=== PATIENT | female | born 2000 | race Caucasian/White ===

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

== ENCOUNTER 2021-06-23 05:47 | Outpatient (CLI) | payer BC, MEDICAID ==
[~2021-06-23] VITALS: Ht 167.7 cm; Wt 61.7 kg
[2021-06-23] MEDS ORDERED: NORE0.3520 PO (09:13)
[2021-06-23] MEDS ORDERED: ELAG150T PO (09:13)
[2021-06-23] MEDS ORDERED: RT-ALBUINH IH (09:13)
[2021-06-23] MEDS ORDERED: CETI10TA49 PO (09:44)
[2021-06-24] MEDS ORDERED: ACET-93 PO (11:17)
[2021-06-24] MEDS ORDERED: OXC5T PO (11:17)
[2021-06-24] MEDS ORDERED: IBUP-844 PO (11:17)
[2021-06-24] MEDS ORDERED: ELAG150T PO (11:17)
== END 2021-06-23 10:11 | disposition home or self-care (01) ==
LOC: PREOP 05:47
PROVIDERS: ATTEND Obstetrics & Gynecology
DX: Z01.818 Encounter for other preprocedural examination (principal)

== ENCOUNTER 2021-06-24 08:42 | Day surgery (SDC) | payer BC, MEDICAID ==
[~2021-06-24] VITALS: Ht 167 cm; Wt 61.7 kg
[2021-06-24] VITALS (10 sets, daily range): BP systolic 107–131; BP diastolic 55–91
--- NOTE | 2021-06-24 07:50 | History & Physical-Surgical ---
HPO-Surgical History of Present Illness Chief Complaint: chronic pelvic pain, not completely resolved with conservative measures Diagnosis/Surgical Indication: CHRONIC PELVIC PAIN/ENDOMETRIOSIS Procedure: LAPAROSCOPY, RESECTION OF ENDOMETRIOSIS, OTHER INDICATED PROCEDURES Date of Surgery: Jun 24, 2021 Weight (Pounds): 137 Weight (Ounces): 1.0 Height (Feet): 5 Height (Inches): 6.00 Allergies and Home Medications Allergies Coded Allergies: cefuroxime axetil (Unverified Adverse Reaction, Unknown, NAUSEA, CAN TAKE KEFLEX, 05/26/18) Patient Home Medication List Home Medication List Reviewed: Yes Albuterol Sulfate (Proair Hfa) 1 Puff Puff, 2 PUFF IH Q4H PRN for SHORTNESS OF BREATH, (Reported) Entered as Reported by: YANNI PITT on 06/23/21912 Cetirizine HCl (Zyrtec) 10 Mg Tablet, 10 MG PO DAILY PRN, (Reported) Entered as Reported by: YANNI PITT on 06/23/21943 Norethindrone (Norethindrone) 0.35 Mg Tablet, 0.35 MG PO DAILY, (Reported) Entered as Reported by: YANNI PITT on 06/23/21912 Discontinued Medications Elagolix Sodium (Orilissa) 150 Mg Tablet, 150 MG PO DAILY, (Reported) Discontinued Reason: No Longer Taking Entered as Reported by: YANNI PITT on 06/23/21912 Hydrocodone Bit/Acetaminophen (Lortab 5 Mg Tablet) 1 Tab Tab, 1 TAB PO Q4-6HR PRN for PAIN-MODERATE Discontinued Reason: No Longer Taking Prescribed by: ALEXANDRIA HUMPHRIES on 10/27/182026 Norgestrel-Ethinyl Estradiol (Elinest-28 Tablet) 1 Each Tablet, 1 TAB PO DAILY, (Reported) Discontinued Reason: No Longer Taking Entered as Reported by: RAUL STEVENSON on 10/27/18 153 Past Cdxhrxd-Uexmmv-Ysfwqw Hx Patient Social History Marrital Status: single Number of Children: 0 Number of living children: 0 Employed/Student: employed Smoking Status: Never a Smoker 2nd Hand Smoke Exposure: No Recent Hopitalizations: No Immunizations Up To Date Date of Influenza Vaccine: Aug 30, 2018 Seasonal Allergies Seasonal Allergies: Yes Surgeries Yes (LYMPH NODE REMOVAL, DENTAL SX) Adenoidectomy, Tonsillectomy Respiratory Yes Cardiovascular No Neurological Yes (AMPLIFIED PAIN SYNDROME) Reproductive System Hx Reproductive Disorders: No Female Reproductive Disorders: Endometriosis Genitourinary No Gastrointestinal No Musculoskeletal No Scoliosis Endocrine History of Endocrine Disorders: No HEENT History of HEENT Disorders: No Cancer No Psychosocial History of Psychiatric Problem: Yes Behavioral Health Disorders: Anxiety Integumentary History of Skin or Integumenta: Yes (ACNE) Blood Transfusions History of Blood Disorders: No Family Medical History Family Hx: Diabetes mellitus PATERAL GRANDFATHER Mental disorder in maternal grandmother Exam Vital Signs Capillary Refill : General Appearance: Alert Respiratory: Clear to Auscultation Cardiovascular: Regular Rate Abdominal: Other (pelvic exam with posterior pain, some decreased mobilit of the uterus) Assessment/Plan Assessment and Plan 1. chronic pelvic pain, not resolved with conservative treatment 2. endometriosis plan - laparoscopy with resection of endometriosis, lysis of adhesion, possible appendectomy, other indicated procedures. Risks of surgery including but not limited to bleeding, injury to bowel, bladder and ureter explained to patient. Understands that if this not the only cause for pain, that pain may not be completely resolved. Prophylactic antibiotics are not recommended. Will be NPO after midnight. Will use prophylactic SCDs. appropriate consents have been signed. JUDIE RUEDA DO Jun 24, 2021 07:50
[~2021-06-24 08:42] MED LIST changes: +CETI10TA49 PO; +ELAG150T PO; +NORE0.3520 PO; +RT-ALBUINH IH
[2021-06-24] MEDS: LACTATED RINGERS 1,000 ML IV PRN ×2 (09:14→10:52)
[2021-06-24] MEDS ORDERED: BUPIVACAINE 0.25% 30 ML (SENSORCAINE) VIAL ONE (09:23)
[2021-06-24] MEDS ORDERED: fentaNYL INJ 100 MCG/2 ML AMP ONE (09:56)
[2021-06-24] MEDS ORDERED: MIDAZOLAM 2 MG/2 ML (VERSED) VIAL ONE (09:56)
[2021-06-24] MEDS ORDERED: NEOSTIGMINE 3 MG/3 ML VIAL ONE (11:04)
[2021-06-24] MEDS ORDERED: ROCURONIUM 10 MG/ML 5 ML SYRINGE IV ONE (11:04)
[2021-06-24] MEDS ORDERED: GLYCOPYRROLATE 0.2 MG/ML (ROBINUL) 2 ML VIAL ONE (11:04)
[2021-06-24] MEDS ORDERED: proPOfol 200 MG/20 ML (DIPRIVAN) VIAL IV ONE (11:05)
[2021-06-24] MEDS ORDERED: SEVOFLURANE (ULTANE) 15 ML INHAL SOLN ONE (11:05)
[2021-06-24] MEDS ORDERED: ONDANSETRON 4 MG/2 ML (SDV) Z0FRAN ONE (11:05)
--- NOTE | 2021-06-24 11:14 | Operative Report ---
Operative Report Date of Procedure/Surgery Jun 24, 2021 Surgeon (s) JUDIE RUEDA DO Cut In Worker (s): NA Post-Operative Diagnosis stage 1 endometriosis enteropelvic adhesion from appendectomy Procedure Performed Laparoscopy with resection and fulgeration of endometriosis lysis of enteropelvic adhesion Description of Procedure Anesthesia Type: General Estimated blood loss (mL): minimal Specimen(s) collected/removed endometriosis right pelvis Description of the Procedure With informed consent the patient was taken to the operating room where general anesthetic was found to be adequate. She was then prepped and draped in the usual sterile fashion in the dorsal lithotomy position. The bladder was drained with a straight catheter of clear yellow urine. A speculum was placed in the vagina and the cervix was grasped with a tenaculum and then a uterine manipulator was inserted. Attention was now turned to the abdomen. The umbilicus was injected with 0.25% Marcaine with epinephrine. A 5 mm skin incision was then made. The varies needle was then inserted and intra-abdominal placement was confirmed with saline drop test and a drop in pressure. The abdomen was insufflated to a maximum pressure of 5 mmHg. The 5 mm trocar was now inserted under direct visualization with the Optiview. Patient was now placed into Trendelenburg and the above-mentioned findings were found. 2 additional 5 mm trochars were placed in the left lower quadrant and lateral to the rectus muscles. I then proceeded to do an evaluation of the pelvis. There was endometriosis in the right side of the cul-de-sac. This was elevated off of the peritoneum and excised. The biopsy was then sent for pathology There are tubes and ovaries appeared normal the uterus otherwise appeared normal. At this point I then took down the adhesions that were associated with her appendix. She had adhesions in the right pelvis extending up the right abdominal wall. This did include a loop of bowel. The bowel was not adherent to the abdominal wall but it was kinked with a band of adhesion. The adhesions were taken down near the abdominal peritoneum in a blunt and in sharp fashion. It was then examined to reveal no active bleeding. The pelvis was now irrigated and there was no active bleeding noted I then removed the instruments and as much gas as possible from the abdomen. The skin was closed with Dermabond. The instruments were now removed from the vagina. The patient was now awakened and taken to the recovery room in a stable condition. Sponge lap needle and instrument counts were correct x2. Findings of the Procedure fluid in pelvis (serosanguinous) stage 1 endometriosis on ovaries and in culdesac dense adhesion of bowel to right pelvic side wall Allergies and Home Medications Allergies Coded Allergies: cefuroxime axetil (Verified Adverse Reaction, Unknown, NAUSEA, CAN TAKE KEFLEX, 06/24/21) Patient Home Medication List Home Medication List Reviewed: Yes Acetaminophen (Acetaminophen) 500 Mg Tablet, 1,000 MG PO Q8H PRN for PAIN-MILD (1-4) Prescribed by: JUDIE RUEDA on 06/24/211116 Albuterol Sulfate (Proair Hfa) 1 Puff Puff, 2 PUFF IH Q4H PRN for SHORTNESS OF BREATH, (Reported) Entered as Reported by: YANNI PITT on 06/23/21912 Last Action: Reviewed Cetirizine HCl (Zyrtec) 10 Mg Tablet, 10 MG PO DAILY PRN, (Reported) Entered as Reported by: YANNI PITT on 06/23/21943 Last Action: Reviewed Elagolix Sodium (Orilissa) 150 Mg Tablet, 150 MG PO DAILY Prescribed by: JUDIE RUEDA on 06/24/211116 Ibuprofen (Ibu) 600 Mg Tablet, 600 MG PO Q6HR Prescribed by: JUDIE RUEDA on 06/24/211116 Norethindrone (Norethindrone) 0.35 Mg Tablet, 0.35 MG PO DAILY, (Reported) Entered as Reported by: YANNI PITT on 06/23/21912 Last Action: Reviewed Oxycodone Hcl (Oxyir Tablet) 5 Mg Tab, 5-10 MG PO Q4H PRN for PAIN-SEVERE (8-10) Prescribed by: JUDIE RUEDA on 06/24/211117 JUDIE RUEDA DO Jun 24, 2021 11:14
[2021-06-24] MEDS ORDERED: ACETAMINOPHEN 500 MG TAB (TYLENOL) PO PRN (11:15)
[2021-06-24] MEDS ORDERED: D5 LR IV SOLUTION 1,000 ML IV SCH (11:15)
[2021-06-24] MEDS ORDERED: KETOROLAC 30 MG/ML VIAL IVP ONE (11:15)
[2021-06-24] MEDS ORDERED: ONDANSETRON 4 MG/2 ML (SDV) Z0FRAN IVP PRN ×2 (11:15→11:30)
--- NOTE | 2021-06-24 11:16 | Discharge Inst-Women's Service ---
Discharge Inst-Women's Serv Depart Medication/Instructions New, Converted or Re-Newed RX: Transmitted to Pharmacy Instructions nothing in vagina for 1 week Final Diagnosis stage 1 endometriosis Problems Reviewed?: Yes Consults/Follow Up Additional Follow Up: Yes (2 weeks and 6 weeks for post op (Bekah) and 6 weeks to follow up on orilissa) Activity Activity: Activity as Tolerated Driving Instructions: No Driving for 24 Hours NO SMOKING: NO SMOKING Nothing Inside Vagina: No Douching, No [place], No Tampons Diet Discharge Diet: No Restrictions Symptoms to Report to : Swelling Increased, Bleeding Excessive, Pain Increased, Fever Over 101 Degrees F, Vaginal Bleeding Increase, Vaginal Discharge Foul For Any Problems or Questions: Contact Your Physician Skin/Wound Care Infection Signs and Symptoms: Increased Redness, Foul Odor of Wound, Increased Drainage, Skin Itchy or Has a Rash, Increased Swelling, Temperature Above 101 F Operative Area Clean and Dry: You May Remove Bandage (in 3 days (Wednesday)) Stitches/Ridge/Dermabond: Dermabond Bathing Instructions: JUDIE Machuca DO Jun 24, 2021 11:16
[2021-06-24] MEDS ORDERED: ELAG150T PO (11:17)
[2021-06-24] MEDS ORDERED: ACET-93 PO (11:17)
[2021-06-24] MEDS ORDERED: IBUP-844 PO (11:17)
[2021-06-24] MEDS ORDERED: OXC5T PO (11:17)
[2021-06-24] MEDS ORDERED: HYDROmorphone 2 MG/ML VIAL (DILAUDID) IV ONE (11:30)
[2021-06-24] MEDS ORDERED: HYDROmorphone 2 MG/ML VIAL (DILAUDID) ONE (11:39)
[2021-06-24] MEDS ORDERED: KETOROLAC 30 MG/ML VIAL ONE (11:43)
[2021-06-24] MEDS ORDERED: IBUPROFEN 600 MG (MOTRIN) TAB PO SCH (12:00)
--- NOTE | 2021-07-17 13:05 | Anesthesia-General Post-Op ---
General Significant Intra-Op Events Notes late entry 06/24/21@ 1200 Patient Condition Mental Status/LOC: Same as Preop Cardiovascular: Satisfactory Nausea/Vomiting: Absent Respiratory: Satisfactory Pain: Controlled Complications: Absent Post Op Complications Complications None Follow Up Care/Instructions Patient Instructions None needed. Anesthesia/Patient Condition Patient Condition Patient is doing well, no complaints, stable vital signs, no apparent adverse anesthesia problems. No complications reported per nursing. REBEKAH EVANGELISTA CRNA Jul 17, 2021 13:05
== END 2021-06-24 13:30 ==
LOC: SDC 08:42
PROVIDERS: ATTEND Obstetrics & Gynecology
DX: N80.9 Endometriosis, unspecified (principal); N73.6 Female pelvic peritoneal adhesions (postinfective); N80.3 Endometriosis of pelvic peritoneum; N94.4 Primary dysmenorrhea; N93.9 Abnormal uterine and vaginal bleeding, unspecified; N92.1 Excessive and frequent menstruation with irregular cycle; J45.909 Unspecified asthma, uncomplicated; F32.A Depression, unspecified; F41.9 Anxiety disorder, unspecified; Z79.899 Other long term (current) drug therapy; Z90.89 Acquired absence of other organs; Z79.891 Long term (current) use of opiate analgesic
CPT/HCPCS: 84703; 87081; 88305; 94664